=== PATIENT | male | born 1980 | race African-American/Black ===

== ENCOUNTER 2020-03-12 03:48 | Observation (INO) ==
[2020-03-12] MEDS ORDERED: Aspirin 81 MG TAB.CHEW PO ONE (05:01)
[2020-03-12] MEDS ORDERED: Ipratropium/Albuterol Neb 3 ML IH ONE (05:11)
[2020-03-12 06:05] LABS: Basophils % 0.4 %; Eosinophils # 0.1 K/mcL (0.0-0.6); Eosinophils % 1.1 %; Hemoglobin 12.1 g/dL (12.9-16.9); Immature Granulocytes % 0.3 % (0-4); Lymphocytes # 2.2 K/mcL (0.6-4.6); Lymphocytes % 29.9 %; Mean Corpuscular Hemoglobin 27.8 pg (28.0-33.3); Mean Corpuscular Volume 89.7 fL (83.0-100.0); Mean Platelet Volume 10.3 fL (9.4-12.4); Monocytes # 0.6 K/mcL (0.0-1.3); Monocytes % 7.7 %; Neutrophils # 4.4 K/mcL (1.6-8.9); Platelet Count 212 K/mcL (140-400); Red Blood Count 4.35 M/mcL (4.19-5.50); Red Cell Distribution Width 13.6 % (11.5-14.5); Segmented Neutrophils % 60.6 %; White Blood Count 7.3 K/mcL (4.3-11.1)
[2020-03-12 06:08] LABS: Prothrombin Time 11.2 Seconds (9.4-12.1)
[2020-03-12 06:52] LABS: Alanine Aminotransferase 50 Units/L (7-52); Albumin 4.1 g/dL (3.5-5.7); Albumin/Globulin Ratio 1.4 (1.1-2.2); Alkaline Phosphatase 61 Units/L (34-104); Aspartate Amino Transferase 24 Units/L (13-39); BUN/Creatinine Ratio 12 (6-26); Bilirubin,Direct 0.2 mg/dL (0.0-0.2); Bilirubin,Indirect 0.7 mg/dL (0.0-1.0); Bilirubin,Total 0.9 mg/dL (0.3-1.0); Blood Urea Nitrogen 11 mg/dL (6-20); Carbon Dioxide 26 mEq/L (23-29); Chloride 104 mEq/L (98-107); Globulin 2.9 g/dL (2.4-3.5); Glucose 135 mg/dL (70-105); Osmolality,Calculated 287 (280-300); Potassium 3.7 mEq/L (3.5-5.1); Sodium 138 mEq/L (136-145); Troponin I < 0.03 ng/mL (< 0.04); eGFR For African Americans > 60 (> 60); eGFR For Non-African Americans > 60 (> 60)
[2020-03-12] MEDS ORDERED: Acetaminophen 325 MG TABLET PO PRN (08:18)
[2020-03-12] MEDS ORDERED: Ondansetron 4 MG/2 ML VIAL IVP PRN (08:18)
[2020-03-12 08:41] LABS: VBG HCO3 31 mEq/L (21-27); VBG PCO2 58 mmHg (41-51); VBG PH 7.34 pH Units (7.32-7.42); VBG PO2 131 mmHg (25-50)
[2020-03-12] MEDS ORDERED: Furosemide 40 MG/4 ML VIAL IVP ONE (09:07)
[2020-03-12] MEDS: Insulin NPH 100 UNIT/ML (x5UNIT) SQ SCH ×2 (09:22→20:48)
[2020-03-12] MEDS ORDERED: Regadenoson 0.4 MG/5 ML SYRINGE IVP ONE (09:29)
[2020-03-12] MEDS: Ipratropium/Albuterol Neb 3 ML IH SCH ×4 (11:15→23:16)
[2020-03-12] MEDS: predniSONE 20 MG TABLET PO SCH (12:23)
[2020-03-12] MEDS ORDERED: *HR* Dextrose 50 % in Water (Vial) 50 ML VIAL IVP PRN (14:17)
[2020-03-12] MEDS ORDERED: Dextrose Gel 15 GM/37.5 ML TUBE PO PRN ×2 (14:17)
[2020-03-12] MEDS ORDERED: D5% in Water 1,000 ML IVC PRN (14:17)
[2020-03-12] MEDS: *HR* Metformin 500 MG TABLET PO SCH (17:12)
[2020-03-13] LABS: Bilirubin,Urine Negative (Negative); Blood,Urine Negative (Negative); Clarity,Urine Clear (Clear); Color,Urine Light-Yellow (Yellow); Glucose,Urine (UA) >=1000 mg/dL (Normal); Ketones,Urine Negative (Negative); Leukocyte Esterase,Urine Negative (Negative); Nitrite,Urine Negative (Negative); PH,Urine 6.5 pH Units (5.0-8.0); Protein,Urine Negative (Neg-Trace); RBC,Urine 0-3 per hpf (0-3); Specific Gravity,Urine 1.019 (1.010-1.025); Urobilinogen,Urine Normal (Normal); WBC,Urine 0-3 per hpf (0-3)
[2020-03-13] MEDS: Ipratropium/Albuterol Neb 3 ML IH SCH ×3 (03:28→11:41)
[2020-03-13] MEDS ORDERED: *HR* Enoxaparin 40 MG/0.4 ML SYRINGE SQ SCH (06:00)
[2020-03-13 08:24] VITALS: BP 159/96
[2020-03-13] MEDS: *HR* Metformin 500 MG TABLET PO SCH (08:39)
[2020-03-13] MEDS: predniSONE 20 MG TABLET PO SCH (08:39)
[2020-03-13] MEDS: Insulin NPH 100 UNIT/ML (x5UNIT) SQ SCH (08:40)
== END 2020-03-13 12:09 | disposition home or self-care (01) ==
LOC: SUATTDRO → 2ANU 03:48 → EMEROOARM 03:48 → SUATTDRO 08:48 → 2ANU 09:52
PROVIDERS: ADMIT Internal Medicine; ATTEND Internal Medicine